=== PATIENT | female | born 1990 | race Two or more races ===

== ENCOUNTER 2025-04-17 11:27 | Emergency (ER) | payer MEDICAID ==
[~2025-04-17] VITALS: Ht 160 cm; Wt 81.6 kg
[2025-04-17 11:34] VITALS: BP 118/80; TEMP 98.2
[2025-04-17 12:10] VITALS: O2SAT 97
== END 2025-04-17 12:11 | disposition home or self-care (01) ==
LOC: ER 11:48
DX: J06.9 Acute upper respiratory infection, unspecified (principal); G40.909 Epilepsy, unspecified, not intractable, without status epilepticus